=== PATIENT | male | born 1955 | race Caucasian/White ===

== ENCOUNTER → 2019-09-18 | Outpatient (CLI) | payer BC, OTHER ==
[2019-09-18 10:40] VITALS: BP 108/68; BP 113/79; BP 114/63
== END ==
LOC: PUL 09-14 08:11
DX: B59 Pneumocystosis (principal); Z79.2 Long term (current) use of antibiotics

== ENCOUNTER → 2019-10-18 | Outpatient (CLI) | payer BC, OTHER | LOC: PUL 10:00 | DX: Z29.9 Encounter for prophylactic measures, unspecified (principal) ==

== ENCOUNTER → 2019-11-16 | Outpatient (CLI) | payer BC, OTHER ==
[2019-11-16 09:50] VITALS: BP 129/72; BP 130/76; BP 136/84
== END ==
LOC: PUL 09:18
DX: Z29.9 Encounter for prophylactic measures, unspecified (principal)

== ENCOUNTER → 2019-12-14 | Outpatient (CLI) | payer BC, OTHER ==
[2019-12-14 10:30] VITALS: BP 123/77; BP 125/81; BP 139/94
== END ==
LOC: PUL 09:23
DX: Z29.9 Encounter for prophylactic measures, unspecified (principal)

== ENCOUNTER → 2020-01-14 | Outpatient (CLI) | payer BC, OTHER ==
[2020-01-14 11:05] VITALS: BP 119/75; BP 123/75; BP 132/86
== END ==
LOC: PUL 09:29
DX: Z29.11 Encounter for prophylactic immunotherapy for respiratory syncytial virus (RSV) (principal)

== ENCOUNTER → 2020-02-14 | Outpatient (CLI) | payer BC, OTHER ==
[2020-02-14 10:27] VITALS: BP 131/74; BP 135/83; BP 136/86
== END ==
LOC: PUL 09:35
DX: Z29.9 Encounter for prophylactic measures, unspecified (principal)